=== PATIENT | female | born 1950 | race Caucasian/White ===

== ENCOUNTER 2021-02-27 14:38 | Emergency (ER) | payer MEDICARE ==
[~2021-02-27] VITALS: Ht 152.4 cm; Wt 74.8 kg
[2021-02-27] MEDS ORDERED: XANAX 0.25 MG0.25 MG PO (14:51)
[2021-02-27] MEDS ORDERED: IRBESARTAN-HCT1 EACH PO (14:52)
[2021-02-27] MEDS ORDERED: VITAMIN D21250 MC1 PO (14:52)
[2021-02-27] MEDS ORDERED: CLARITIN10 MG PO (14:52)
[2021-02-27] MEDS ORDERED: ASA81BEC PO (14:52)
[2021-02-27] MEDS ORDERED: ROSUVASTATIN CA20 MG PO (14:52)
[2021-02-27 15:30] VITALS: BP 171/101
[2021-02-27] MEDS ORDERED: VISTARIL 25 MG25 M1 PO (15:30)
[2021-02-27] MEDS ORDERED: ZOLOFT 50 MG TA50 MG PO (15:30)
== END 2021-02-27 15:30 | disposition home or self-care (01) ==
LOC: M.ERS 14:38
DX: F32.9 Major depressive disorder, single episode, unspecified (principal); F41.9 Anxiety disorder, unspecified